=== PATIENT | male | born 1965 | race Caucasian/White ===

== ENCOUNTER → 2024-11-17 | Outpatient (CLI) | payer BC ==
--- NOTE | 2024-11-17 10:51 | XR ---
EXAMINATION TYPE: XR knee complete RT DATE OF EXAM: 11/17/2024 CLINICAL INDICATION: Male, 58 years old with history of [id number] RT KNEE PAIN, pain TECHNIQUE: 3 views of the knee were obtained. COMPARISON: None. FINDINGS: There is no acute fracture/dislocation evident in the right knee. Mild to moderate tricomp artment joint space loss. No significant spurring. The overlying soft tissue appears unremarkable. IMPRESSION: As above. [facility], , 11/17/2024 10:49 AM
== END | disposition home or self-care (01) ==
LOC: RADXRYALE 10:17
PROVIDERS: ATTEND Physician Assistant Medical
DX: M17.11 Unilateral primary osteoarthritis, right knee (principal)